=== PATIENT | female | born 1970 | race Caucasian/White ===

== ENCOUNTER 2017-01-31 02:10 | Observation (INO) | payer OTHER ==
[~2017-01-31] VITALS: Ht 175.3 cm; Wt 107.4 kg
[~2017-01-31 02:10] MED LIST: BENTYL20 MG PO; CLONAZEPAM0.5 MG PO; COLACE100 MG PO; DAILY VITE1 EAC1 PO; FLECAINIDE ACE100 MG PO; LEXAPRO20 MG PO; LITE COAT ASPI325 M1 PO; LOPRESSOR50 MG PO; METOPROLOL TART50 MG PO; MIRALAX17 GM PO
[2017-01-31 02:39] LABS: HEMATOCRIT 41.8 % (36.0-46.0); MCHC 34.9 G/DL (30.0-36.0); MCV 91.7 FL (83-99); MEAN PLAT.VOLUME 10.6 uM^3 (9.5-12.4); PLATELET COUNT 237 K/uL (156-360); RBC DIS.WIDTH-CV 12.3 % (11.8-14.6); RBC DIS.WIDTH-SD 40.9 % (39-53); RED BLOOD COUNT 4.56 M/uL (3.80-5.20); WHITE BLOOD COUNT 12.5 K/uL (4.1-10.2)
[2017-01-31 02:48] LABS: CHLORIDE 108 mEq/L (99-109); SODIUM 140 mEq/L (136-147)
[2017-01-31 02:50] LABS: GLUCOSE 110 mg/dL (70-99)
[2017-01-31 02:51] LABS: ANION GAP 12 MEQ/L (2-14)
[2017-01-31 02:52] LABS: D-DIMER ELISA 0.37 mg/L FEU (< 0.57)
[2017-01-31 02:54] LABS: GFR ESTIMATE (CALCULATED) > 59 mL/min/
[2017-01-31 02:55] LABS: UREA NITROGEN (BUN) 12 mg/dL (9-23)
[2017-01-31 03:01] LABS: TROP-I INTERPRETATION NEGATIVE; TROPONIN-I < 0.01 ng/mL (0.0-0.30)
[2017-01-31 05:41] VITALS: BP 117/66
[2017-01-31 07:38] VITALS: BP 109/69
[2017-01-31 09:43] LABS: TROP-I INTERPRETATION NEGATIVE; TROPONIN-I < 0.01 ng/mL (0.0-0.30)
[2017-01-31 10:35] VITALS: BP 113/64
[2017-01-31] MEDS ORDERED: MIRALAX17 GM PO (12:01)
[2017-01-31 16:13] LABS: TROP-I INTERPRETATION NEGATIVE; TROPONIN-I < 0.01 ng/mL (0.0-0.30)
== END 2017-01-31 17:05 | disposition home or self-care (01) ==
LOC: EME 02:10 → EDOF 04:02 → 5WEST 05:32
PROVIDERS: Emergency Medicine; Internal Medicine
DX: R07.2 Precordial pain (principal); K21.9 Gastro-esophageal reflux disease without esophagitis; I25.2 Old myocardial infarction; F41.9 Anxiety disorder, unspecified
CPT/HCPCS: 71020; 80048; 83880; 84484; 85027; 85379; 93005; 99281; 99285; G0378; J1650; J7030